=== PATIENT | female | born 1990 | race American Indian/Alaskan Native ===

== ENCOUNTER 2017-12-15 14:27 | Emergency (ER) | payer MEDICAID ==
[2017-12-15 14:50] VITALS: BP 108/73
[2017-12-15] MEDS ORDERED: ZOFRAN IM ONE (16:39)
--- NOTE | 2017-12-15 16:42 | Emergency Department Report ---
ED Abdominal Pain HPI - General Chief Complaint: Abdominal Pain Stated Complaint: BODY PAIN/VOMITING/DIARRHEA Time Seen by Provider: 12/15/17 16:22 Source: patient Mode of arrival: Ambulatory Limitations: No Limitations - History of Present Illness Initial Comments: Patient is 27 years old female with no significant past medical history. Patient presented to the ER complaining of abdominal pain, crampy in nature, diffuse associated with nausea vomiting and watery diarrhea. Patient denied any blood or mucus in her diarrhea. Patient also stated that she's been having symptoms of runny nose and congestion. No fever. MD Complaint: abdominal pain -: days(s) (3 days) Location: diffuse Radiation: none Migration to: no migration Severity: moderate Severity scale (0 -10): 4 Quality: cramping Consistency: intermittent Associated Symptoms: nausea, vomiting, diarrhea. denies: fever - Related Data Allergies Allergy/AdvReac Type Severity Reaction Status Date / Time No Known Allergies Allergy Verified 05/25/16 08:44 ED Review of Systems ROS: Stated complaint: BODY PAIN/VOMITING/DIARRHEA Other details as noted in HPI Comment: All other systems reviewed and negative Constitutional: denies: chills, fever Cardiovascular: denies: chest pain, palpitations, dyspnea on exertion Gastrointestinal: abdominal pain, nausea, vomiting, diarrhea. denies: constipation, hematemesis, melena, hematochezia Musculoskeletal: denies: back pain Neurological: denies: headache, weakness, numbness, paresthesias, confusion ED Past Medical Hx - Past Medical History Previous Medical History?: No - Surgical History Past Surgical History?: No - Social History Smoking Status: Never Smoker Substance Use Type: None ED Physical Exam - General Limitations: No Limitations General appearance: alert, in no apparent distress - Head Head exam: Present: atraumatic, normocephalic, normal inspection - ENT ENT exam: Present: normal exam, normal orophraynx, mucous membranes moist - Neck Neck exam: Present: normal inspection, full ROM. Absent: tenderness, meningismus, lymphadenopathy - Respiratory Respiratory exam: Present: normal lung sounds bilaterally. Absent: respiratory distress, wheezes, rales, rhonchi, stridor, accessory muscle use, decreased breath sounds, prolonged expiratory - Cardiovascular Cardiovascular Exam: Present: regular rate, normal rhythm, normal heart sounds - GI/Abdominal GI/Abdominal exam: Present: soft, normal bowel sounds. Absent: distended, tenderness, guarding, rebound, rigid, organomegaly, mass, bruit, pulsatile mass , hernia - Extremities Exam Extremities exam: Present: normal inspection, full ROM, normal capillary refill - Back Exam Back exam: Present: normal inspection, full ROM. Absent: CVA tenderness (L) - Neurological Exam Neurological exam: Present: alert, oriented X3, CN II-XII intact, normal gait, reflexes normal - Skin Skin exam: Present: warm, intact, normal color ED Course Vital Signs 12/15/17 14:47 Temperature 98.9 F Pulse Rate 111 H Respiratory 18 Rate Blood Pressure 108/73 O2 Sat by Pulse 100 Oximetry Critical care attestation.: If time is entered above; I have spent that time in minutes in the direct care of this critically ill patient, excluding procedure time. ED Disposition Clinical Impression: Abdominal pain, Gastroenteritis Disposition: DC-01 TO HOME OR SELFCARE Is pt being admited?: No Condition: Stable Instructions: Abdominal Pain (ED), Gastroenteritis (ED) Referrals: PRIMARY CARE, [Primary Care Provider] - 3-5 Days
[2017-12-15 17:10] LABS: HCG Qualitative,Urine Negative (Negative)
[2017-12-15 17:18] LABS: Bilirubin,Urine NEG (Negative); Blood,Urine SM (Negative); Color,Urine Amber (Yellow); Mucus,Urine FEW /HPF; Urobilinogen,Urine < 2.0 mg/dL (<2.0)
== END 2017-12-15 17:26 | disposition home or self-care (01) ==
LOC: ED 14:27
DX: K52.9 Noninfective gastroenteritis and colitis, unspecified (principal)
CPT/HCPCS: 81001; 81025; 96372; 99283; J2405